=== PATIENT | male | born 1990 | race Caucasian/White ===

== ENCOUNTER 2018-01-25 08:33 | Emergency (ER) | payer OTHER ==
[2018-01-25] MEDS ORDERED: Doxycycline 100 MG Cap PO ONE (08:56)
--- NOTE | 2018-01-25 08:59 | EDM.PDOC ---
ED HPI GENERAL MEDICAL PROBLEM - General Chief Complaint: Allergic Reaction Stated Complaint: RASH WITH BLISTERS ON ARM Time Seen by Provider: 01/25/18 08:56 Source of Information: Reports: Patient History Limitations: Reports: No Limitations - History of Present Illness INITIAL COMMENTS - FREE TEXT/NARRATIVE: 27-year-old male presents to the ED with a angry red rash in his antecubital fossa was right arm. Patient states that the lesions been present for over a week but have increased in size and are more painful. It similar type lesions on his left antecubital fossa which appear to have cleared on their own. 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 He also has a lesion on the nape of his neck were clothing or a cuff of his clothing rubs on his nape of his neck. He is otherwise healthy with no diabetes. Takes no medications. He's been applying Eucerin cream to the right antecubital fossa for the last few days and feels it is helping. No associated systemic signs of illness fever chills nausea or vomiting. 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 Cream or ointment to the lesions the last few days.) - Related Data Allergies Allergy/AdvReac Type Severity Reaction Status Date / Time No Known Allergies Allergy Verified 01/25/18 08:43 Home Meds: Home Meds Doxycycline [Vibramycin] 100 mg PO DAILY #20 tab 01/25/18 [Rx] Past Medical History - Past Health History Medical/Surgical History: Denies Medical/Surgical History Social & Family History - Recreational Drug Use Recreational Drug Use: Yes Drug Use in Last 12 Months: Yes Recreational Drug Type: Reports: Marijuana/Hashish ED ROS ALLERGIC REACTION - Review of Systems Review Of Systems: See Below Constitutional: Reports: No Symptoms HEENT: Reports: No Symptoms Respiratory: Reports: No Symptoms Cardiovascular: Reports: No Symptoms Endocrine: Reports: No Symptoms GI/Abdominal: Reports: No Symptoms : Reports: No Symptoms Musculoskeletal: Reports: No Symptoms Skin: Reports: No Symptoms Neurological: Reports: No Symptoms Psychiatric: Reports: No Symptoms Hematologic/Lymphatic: Reports: No Symptoms Immunologic: Reports: No Symptoms ED EXAM GENERAL NO PERIP PULSE - Physical Exam Exam: See Below Exam Limited By: No Limitations General Appearance: Alert, WD/WN, No Apparent Distress Skin Exam: Increased Warmth, Other (Patient has several maculopapular lesions in the right antecubital fossa varying size. The largest is proximal 1.5 cm length and one almost a centimeter in width. all lesions are very angry and erythematous. There is no purulent discharge or pustule formation. ) Course - Vital Signs Last Recorded V/S: Last Vital Signs Temp 36.8 C 01/25/18 08:44 Pulse 70 01/25/18 08:44 Resp BP 135/90 01/25/18 08:44 Pulse Ox 99 01/25/18 08:44 - Orders/Labs/Meds Meds: Medications Discontinued Medications Generic Name Dose Route Start Last Admin Trade Name Freq PRN Reason Stop Dose Admin Doxycycline Hyclate 200 mg 01/25/18 08:56 Vibramycin PO 01/25/18 08:57 ONETIME ONE - Re-Assessments/Exams Free Text/Narrative Re-Assessment/Exam: 01/25/18 09:03 27-year-old male attends the ED for assessment of skin lesions right antecubital fossa. They've been present for over a week to 10 days. Feels they're getting larger and more painful. They do not itch. Feels the initial irritation started after wearing fire retardant clothing. Uses in the workplace. 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 I.e. wherever there is clearly providing friction on the skin. On examination there are several maculopapular lesions right antecubital fossa and one solitary lesion nape of neck. All her angry looking and erythematous and slightly warm to palpation suggesting underlying infection. No pustules are evident. Assessment is folliculitis. Nidus for infection is likely skin breakdown from friction from clothing. He will continue to use Mr. Brown ointment after showering to the lesions. Placed on oral doxycycline 100 mg twice daily for the next 10 days to clear up infection. Doxycycline will also provide MRSA coverage. Departure - Departure Time of Disposition: 08:57 Disposition: Home, Self-Care 01 Condition: Fair Clinical Impression: Folliculitis - Discharge Information Prescriptions: Doxycycline [Vibramycin] 100 mg PO DAILY #20 tab Referrals: PCP,None [Primary Care Provider] - Forms: ED Department Discharge Additional Instructions: Evaluation the emergency room today in regards to a rash primarily in the right antecubital fossa. Initial cause of inflammation is unclear. Skin breakdown occurred in this area however and has become secondarily infected. Most likely staph aureus infection and his develop small pustules. Tends to spread and moist areas and sometimes in areas when we tell off after showering. Have a lesion on the nape of your neck. Both of these areas are high friction areas from clothing rubbing on the skin. Treatment is to continue placing music burn cream or ointment on your wounds. Until they are gone. Use oral antibiotic doxycycline 100 mg twice daily for the next 10 days. Would be due at [facility] First tablets were provided through the ED today.
== END 2018-01-25 09:08 | disposition home or self-care (01) ==
LOC: JD.ED 08:33
DX: L73.9 Follicular disorder, unspecified (principal); Z79.899 Other long term (current) drug therapy
CPT/HCPCS: 99282; A9270; 99283